=== PATIENT | male | born 2000 | race African-American/Black ===

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

== ENCOUNTER → 2021-01-05 | Outpatient (REF) | payer SELFPAY ==
[~2021-01-05] MED LIST: ERYT5OIN25 OU; MOTR200T44 PO; NYQU1LIQ PO
== END ==
LOC: M LAB REF 18:04
PROVIDERS: ATTEND Physician Assistant
DX: R30.0 Dysuria (principal)

== ENCOUNTER → 2021-06-03 | Outpatient (REF) | payer SELFPAY | LOC: M LAB REF 19:46 | PROVIDERS: ATTEND Physician Assistant | DX: J00 Acute nasopharyngitis [common cold] (principal) ==